=== PATIENT | male | born 1970 | race Caucasian/White ===

== ENCOUNTER 2017-10-25 12:13 | Emergency (ER) | payer OTHER, MEDICAID ==
[2017-10-25] MEDS: HYDROCODONE/APAP (10/325) TAB PO (13:22)
[2017-10-25] MEDS: KETOROLAC 30 MG INJ IM (13:23)
== END 2017-10-25 14:28 | disposition home or self-care (01) ==
LOC: FTE 12:13
DX: M54.41 Lumbago with sciatica, right side (principal); Z87.891 Personal history of nicotine dependence
CPT/HCPCS: 72100; 96372; 99284-25

== ENCOUNTER 2017-10-26 09:51 | Emergency (ER) | payer OTHER | END 2017-10-26 10:46 | disposition home or self-care (01) | LOC: FTE 09:51 | DX: M54.41 Lumbago with sciatica, right side (principal); F17.210 Nicotine dependence, cigarettes, uncomplicated | CPT/HCPCS: 99284; Z7502 ==